=== PATIENT | male | born 1980 | race Caucasian/White ===

== ENCOUNTER → 2021-05-11 | Outpatient (CLI) | payer BC, OTHER ==
[~2021-05-11] MED LIST: AMOX500C2 PO; AZIT250T12 PO; CEPH500C PO; HYDR-3714 PO; TRAM-21 PO
--- NOTE | 2021-05-11 09:14 | Diagnostic Imaging Report ---
PROCEDURE: US left lower extremity venous. TECHNIQUE: Multiple Real-time grayscale images were obtained over the left lower extremity in various projections. Additional duplex Doppler and color Doppler images were also obtained. INDICATION: Left thigh pain. FINDINGS: The veins of the left leg have good color filling and compressibility. There is phasic flow and a normal response to augmentation. IMPRESSION: Negative venous Doppler left leg. Dictated by: Dictated on workstation # [id number]
== END ==
LOC: RAD 08:00
PROVIDERS: ATTEND Nurse Practitioner Family
DX: M79.652 Pain in left thigh (principal)

== ENCOUNTER → 2021-05-28 | Outpatient (CLI) | payer BC ==
--- NOTE | 2021-05-28 14:09 | Diagnostic Imaging Report ---
INDICATION: Chronic left shoulder pain. TIME OF EXAM: 1:49 p.m. Three views of the left shoulder were obtained. Glenohumeral and acromioclavicular alignment are normal. Acromiohumeral space is normal. No fracture or dislocation is seen. IMPRESSION: No acute bony abnormality is detected. Dictated by: Dictated on workstation # [id number]
== END ==
LOC: RAD 13:20
DX: M25.512 Pain in left shoulder (principal)
CPT/HCPCS: 73030

== ENCOUNTER → 2021-06-04 | Outpatient (CLI) | payer BC ==
--- NOTE | 2021-06-04 19:39 | Diagnostic Imaging Report ---
EXAMINATION: Magnetic resonance imaging of the left shoulder without contrast. DATE: June 04, 2021. COMPARISON: May 28, 2021. HISTORY: 40-year-old male, left shoulder pain. TECHNIQUE: Magnetic Resonance Imaging sequences were performed of the shoulder without contrast. FINDINGS: ROTATOR CUFF, LIGAMENTS, TENDONS, AND MUSCLES: The supraspinatus, infraspinatus, teres minor and subscapularis tendons and muscles are intact. There is normal rotator cuff muscle bulk and signal. LONG HEAD OF BICEPS: The biceps labral attachment and long head of the biceps tendon is intact. The long head of the biceps tendon is normally positioned within the bicipital groove. GLENOHUMERAL JOINT: The humeral head is well positioned relative to the glenoid. The labrum is grossly intact. There is no identified paralabral cyst. The articular cartilage is grossly intact. There is no joint effusion. ACROMIOCLAVICULAR JOINT: The acromioclavicular joint is normally aligned. The coracoclavicular and coracoacromial ligaments are intact. There are mild acromioclavicular degenerative changes without large undersurface osteophyte. BONE: There is no os acromiale. There is degenerative related marrow edema adjacent to the acromioclavicular joint. There is no Hill-Sachs deformity. There is no acute fracture, bone contusion or evidence of osteonecrosis. BURSAE AND SOFT TISSUES: The bursae and soft tissue surrounding the shoulder are unremarkable. IMPRESSION: 1. Intact rotator cuff and proximal long head of biceps tendon. 2. Grossly intact labrum and unremarkable additional glenohumeral joint assessment. 3. Mild acromioclavicular degenerative changes without undersurface osteophyte. 4. No acute fracture, bone contusion or evidence of osteonecrosis. Dictated by: Dictated on workstation # [id number]
== END ==
LOC: RAD 15:30
PROVIDERS: ATTEND Family Medicine
DX: M19.012 Primary osteoarthritis, left shoulder (principal)
CPT/HCPCS: 73221

== ENCOUNTER → 2022-11-15 | Outpatient (CLI) | payer BC ==
--- NOTE | 2022-11-15 16:07 | Diagnostic Imaging Report ---
EXAMINATION: Lumbar spine radiographs, 3 views. COMPARISON: February 03, 2015. HISTORY: 42-year-old male, low back pain. FINDINGS: There are 5 lumbar-type vertebral bodies. There is no identified compression deformity or fracture. The lumbar disc heights are well preserved. The facet joints are unremarkable. The sacroiliac joints are unremarkable. IMPRESSION: 1. Unremarkable radiographic evaluation of the lumbar spine. Dictated by: Dictated on workstation # [id number]
== END ==
LOC: RAD 09:47
PROVIDERS: ATTEND Nurse Practitioner Family
DX: M54.50 Low back pain, unspecified (principal)
CPT/HCPCS: 72100

== ENCOUNTER 2022-11-23 20:59 | Emergency (ER) | payer BC ==
[~2022-11-23] VITALS: Ht 162.6 cm; Wt 121.6 kg
[~2022-11-23 20:59] MED LIST changes: -ACHD5005 PO; -AMLO-251; -ATOR20TA66; -BUSP5TAB59; -FURO40TA4; -LISI40TA9; -LOSA25TA41; -METO50TA7
[2022-11-23] MEDS ORDERED: LOSA25TA41 (21:26)
[2022-11-23] MEDS ORDERED: BUSP5TAB59 (21:26)
[2022-11-23] MEDS ORDERED: ATOR20TA66 (21:26)
[2022-11-23] MEDS ORDERED: METO50TA7 (21:26)
[2022-11-23] MEDS ORDERED: FURO40TA4 (21:26)
[2022-11-23] MEDS ORDERED: AMLO-251 (21:26)
[2022-11-23] MEDS ORDERED: LISI40TA9 (21:26)
[2022-11-23] MEDS ORDERED: KETOROLAC 30 MG/ML VIAL IM ONE (22:15)
[2022-11-23] MEDS ORDERED: ORPHENADRINE 60 MG/2 ML (NORFLEX) AMP (ED ONLY) IM ONE (22:15)
--- NOTE | 2022-11-23 22:17 | ED Lower Extremity ---
General Chief Complaint: Lower Extremity Stated Complaint: L LEG PAIN Nursing Triage Note: c/o left upper leg throbbing pain, calf cramping x2 weeks. unable to put pressure on leg tonight. reports having mri of back today for back pain. motrin at 1600 Source: patient Exam Limitations: no limitations History of Present Illness Date Seen by Provider: Nov 23, 2022 Time Seen by Provider: 22:16 Initial Comments Patient is a 42-year-old male who presents ED with left leg pain. Patient reports a left leg throbbing pain withcalf cramping for the past 2 weeks. Over the past 3 to 4 days worsening pain to the left leg. Radiates from the lower back to the left lateral hip to the left knee. Difficulty bearing weight. Reports having an MRI on his back today currently being managed by Dr. PARSONS. Last week was given a steroid injection and placed on prednisone without much improvement. Also taking ibuprofen. Patient works as a team otr truck driver. They are concerned for blood clot. No known blood disorders. Patient denies of any bowel or urine incontinence, saddle paresthesia, lower extremity weakness. Able to bear weight but with pain. Allergies and Home Medications Allergies Coded Allergies: No Known Drug Allergies (Unverified Allergy, Mild, 03/08/09) Patient Home Medication List Home Medication List Reviewed: Yes Amlodipine Besylate (Amlodipine Besylate) 10 Mg Tablet, (Reported) Entered as Reported by: KAREN ESPINOZA on 11/23/222125 Last Action: New Order Atorvastatin Calcium (Atorvastatin Calcium) 20 Mg Tablet, (Reported) Entered as Reported by: KAREN ESPINOZA on 11/23/222125 Last Action: New Order Buspirone HCl (Buspirone HCl) 5 Mg Tablet, (Reported) Entered as Reported by: KAREN ESPINOZA on 11/23/222125 Last Action: New Order Furosemide (Furosemide) 40 Mg Tablet, (Reported) Entered as Reported by: KAREN ESPINOZA on 11/23/222125 Last Action: New Order Hydrocodone/Acetaminophen (Hydrocodone-Acetamin 5-325 mg) 5 Mg-325 Mg Tablet, 1 TAB PO Q4H PRN for PAIN-MODERATE (5-7) Prescribed by: HERMES DYSON on 11/23/222326 Lisinopril (Lisinopril) 40 Mg Tablet, (Reported) Entered as Reported by: KAREN ESPINOZA on 11/23/222125 Last Action: New Order Losartan Potassium (Losartan Potassium) 25 Mg Tablet, (Reported) Entered as Reported by: KAREN ESPINOZA on 11/23/222125 Last Action: New Order Metoprolol Succinate (Metoprolol Succinate) 50 Mg Tab.er.24h, (Reported) Entered as Reported by: KAREN ESPINOZA on 11/23/222125 Last Action: New Order Discontinued Medications Azithromycin (Azithromycin) 250 Mg Tablet, 250 MG PO DAILY Discontinued Reason: No Longer Taking Prescribed by: CHRISSIE TAVAREZ on 12/12/152216 Last Action: Discontinued Cephalexin Monohydrate (Cephalexin) 500 Mg Capsule, 1 EACH PO TID Discontinued Reason: No Longer Taking Prescribed by: GONSALO LEI on 05/03/151818 Last Action: Discontinued Hydrocodone Bit/Acetaminophen (Hydrocodone-Apap 5-325 Tab) 1 Tab Tablet, 1 TAB PO Q4H PRN for PAIN Discontinued Reason: No Longer Taking Prescribed by: GONSALO LEI on 05/03/151818 Last Action: Discontinued Review of Systems Constitutional: No chills, No diaphoresis EENTM: No ear pain, No mouth pain, No mouth swelling, No throat pain, No throat swelling Respiratory: No cough Cardiovascular: No chest pain, No edema Gastrointestinal: No abdominal pain, No nausea, No vomiting Genitourinary: No decreased output, No discharge, No dysuria, No frequency Musculoskeletal: back pain, muscle pain All Other Systems Reviewed Negative Unless Noted: Yes Past Wjnanwr-Ievvgq-Dsfazk Hx Patient Social History Tobacco Use?: Yes Substance use?: No Alcohol Use?: Yes Alcohol Frequency: Once in a while Pt feels they are or have been: No Immunizations Up To Date Tetanus Booster (TDap): Unknown First/Initial COVID19 Vaccinat: na Past Medical History Surgery/Hospitalization HX: htn, hld, back pain/injury, depression Hypertension Family Medical History Heart Disease, Hypertension Physical Exam Vital Signs Vital Signs - First Documented 11/23/22 21:18 Temp 36.6 Pulse 74 Resp 16 B/P (MAP) 159/96 (117) Pulse Ox 98 O2 Delivery Room Air Capillary Refill : Less Than 3 Seconds Height, Weight, BMI Height: 5'4" Weight: 213lbs. oz. 96.930933wx; 45.00 BMI Method:Stated General Appearance: WD/WN, no apparent distress HEENT: PERRL/EOMI, normal ENT inspection, TMs normal, pharynx normal Neck: non-tender, full range of motion, supple, normal inspection Cardiovascular: regular rate, rhythm, no edema, no gallop, no JVD Respiratory: chest non-tender, lungs clear, normal breath sounds, no respiratory distress Gastrointestinal: normal bowel sounds, non tender, soft Back: normal inspection, no CVA tenderness, vertebral tenderness (Lumbar midline tenderness, left lumbar paraspinal muscle tenderness.) Hips: bilateral hip non-tender, bilateral hip normal inspection; left hip limited range of motion Legs: left leg soft tissue tenderness (Left lateral thigh tenderness.) Knees: bilateral knee non-tender, bilateral knee normal inspection, bilateral knee normal range of motion Ankles: bilateral ankle non-tender, bilateral ankle normal inspection, bilateral ankle normal range of motion Feet: bilateral foot non-tender, bilateral foot normal inspection, bilateral foot normal range of motion, bilateral foot other (Neurovascular tact bilateral lower extremity. 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, no motor/sensory deficits, alert, normal mood/affect, oriented x 3 Skin: normal color, warm/dry Progress/Results/Core Measures Results/Orders Lab Results Laboratory Tests Test 11/23/22 22:30 Range/Units D-Dimer < 0.27 0.00-0.49 UG/ML My Orders Orders - FEDERICO CRAWFORD Fibrin Degradation Products (11/23/22 22:09) Hydrocodone/Apap 10/325 Tablet (Lortab 1 (11/23/22 22:09) Ketorolac Injection (Toradol Injection) (11/23/22 22:15) Orphenadrine Inj (Ed Only) (Norflex Inje (11/23/22 22:15) Medications Given in ED Vital Signs/I&O 11/23/22 11/23/22 21:18 23:40 Temp 36.6 36.5 Pulse 74 69 Resp 16 16 B/P (MAP) 159/96 (117) 151/89 Pulse Ox 98 99 O2 Delivery Room Air Room Air Blood Pressure Mean: 117 Departure Communication (PCP) Patient is a team otr truck driver. Reports immobilization and long drive concern for DVT. No known blood disorders. No significant swelling, redness or bruising. Family adamant that there potentially could be a DVT. D-dimer was negative. Able to rule out. Patient's pain appears to be more associated to his L4 to L5 disc extrusion with moderate central canal stenosis. No neurological red flag findings such as bowel or urine incontinence, saddle paresthesia. Able to bear weight but with pain. Discussed with patient to follow-up primary care physician with the MRI results. Further evaluation will be needed. Will provide dose of pain medication. Continue with anti-inflammatories. Impression Primary Impression: Leg pain Disposition: HOME, SELF-CARE Condition: Stable Departure-Patient Inst. Decision time for Depature: 23:26 Referrals: ELE PARSONS MD (PCP/Family) Primary Care Physician Patient Instructions: Herniated Disc Exercises Scripts Hydrocodone/Acetaminophen (Hydrocodone-Acetamin 5-325 mg) 5 Mg-325 Mg Tablet 1 TAB PO Q4H PRN for PAIN-MODERATE (5-7), #10 TAB Prov: FEDERICO CRAWFORD 11/23/22 Work/School Note: Work Release Form Date Seen in the Emergency Department: Nov 23, 2022 Return to Work: Nov 26, 2022 FEDERICO CRAWFORD Nov 23, 2022 22:17
[2022-11-23] MEDS ORDERED: ACHD5005 PO (23:27)
[2022-11-23 23:40] VITALS: BP 151/89
== END 2022-11-23 23:40 | disposition home or self-care (01) ==
LOC: EDUNIT# 20:59 → ER 21:00
DX: M79.652 Pain in left thigh (principal); M54.50 Low back pain, unspecified; Z28.310 Unvaccinated for COVID-19
CPT/HCPCS: 36415; 85379

== ENCOUNTER → 2022-11-23 | Outpatient (CLI) | payer BC ==
[~2022-11-23] MED LIST changes: +ACHD5005 PO; +AMLO-251; +ATOR20TA66; +BUSP5TAB59; +FURO40TA4; +LISI40TA9; +LOSA25TA41; +METO50TA7
--- NOTE | 2022-11-23 09:45 | Diagnostic Imaging Report ---
INDICATION: Chronic low back pain with increased pain lifting heavy objects. EXAMINATION: Lumbar spine MRI without contrast on 11/23/2022. FINDINGS: There is normal height and alignment of the vertebral bodies. Tip of the conus is unremarkable in appearance and location. L1-L2: Unremarkable. L2-L3: Unremarkable. L3-L4: There is disc desiccation with minimal broad-based bulging disc material containing a central annular tear. Findings cause mild central stenosis. There is moderate bilateral neuroforaminal narrowing. L4-L5: There is disc desiccation with a prominent right paracentral disc extrusion. This causes encroachment upon the transiting left nerve root which is diffusely enlarged, possibly reactive in nature. The elongated area of slightly hyperintense material as compared to the adjacent extruded disc is well seen on sagittal images 8 through 10 and likely represents the enlarged transiting nerve root. A mass is felt to be unlikely. There is moderate central stenosis at this level. There is moderate bilateral neuroforaminal narrowing. L5-S1: There is bilateral facet hypertrophy with a small central disc protrusion. Minimal bilateral neuroforaminal narrowing is noted. Visualized intra-abdominal structures demonstrate an incompletely imaged large cystic lesion measuring at least 4.2 cm. IMPRESSION: 1. Disc extrusion at L4-L5 causing marked narrowing of the left lateral recess and moderate central stenosis with the adjacent elongated appearing area of hyperintensity likely an enlarged transiting left nerve root, likely on a reactive basis. If no intervention is performed, followup post contrast imaging could further evaluate. 2. Other degenerative findings as detailed above. Dictated by: Dictated on workstation # [id number]
== END ==
LOC: RAD 08:16
PROVIDERS: ATTEND Nurse Practitioner Family
DX: M51.16 Intervertebral disc disorders with radiculopathy, lumbar region (principal); M48.061 Spinal stenosis, lumbar region without neurogenic claudication; M89.38 Hypertrophy of bone, other site; M51.17 Intervertebral disc disorders with radiculopathy, lumbosacral region
CPT/HCPCS: 72148

== ENCOUNTER → 2023-01-30 | Outpatient (CLI) | payer BC ==
[~2023-01-30] MED LIST changes: +ACHD5005 PO; +AMLO-251; +ATOR20TA66; +BUSP5TAB59; +FURO40TA4; +LISI40TA9; +LOSA25TA41; +METO50TA7
--- NOTE | 2023-01-30 14:14 | Diagnostic Imaging Report ---
PROCEDURE: CT head without contrast. TECHNIQUE: Multiple contiguous axial images were obtained through the brain without the use of intravenous contrast. Auto Exposure Controls were utilized during the CT exam to meet ALARA standards for radiation dose reduction. INDICATION: Dizziness for the last three weeks. COMPARISON: No prior studies are available for comparison. FINDINGS: Ventricles and sulci are within normal limits. No sulcal effacement or midline shift is identified. No acute intra-axial or extra-axial hemorrhage is detected. Cisterns are patent. Visualized paranasal sinuses are clear. IMPRESSION: No acute intracranial process is identified. Dictated by: Dictated on workstation # [id number]
== END ==
LOC: CARD 13:45
PROVIDERS: ATTEND Family Medicine
DX: R00.0 Tachycardia, unspecified (principal); R42 Dizziness and giddiness; R55 Syncope and collapse
CPT/HCPCS: 70450; 93246